=== PATIENT | male | born 1965 ===

== ENCOUNTER → 2018-08-25 21:07 | Outpatient (REF) | payer OTHER, SELFPAY ==
[2018-08-25 21:11] LABS: Bacteria Urine None Seen; WBC Urine None Seen (0-5/HPF)
[2018-08-25 21:53] LABS: Add Manual Diff / Slide Review NO; Basophils Absolute Auto 0 /uL (0-100); Basophils Percent Auto 0.5 % (0-2); Eosinophils Absolute Auto 100 /uL (0-450); Eosinophils Percent Auto 1.7 % (2-4); Hematocrit 44.5 % (41-53); Hemoglobin 15.4 g/dL (13.5-17.5); Lymphocytes Absolute Auto 1600 /uL (1100-4500); Lymphocytes Percent Auto 29.6 % (25-40); Mean Corpuscular HGB Conc 34.6 % (30-36); Mean Corpuscular Hemoglobin 32.3 PG (26-34); Mean Corpuscular Volume 93.4 fL (80-100); Monocytes Absolute Auto 500 /uL (0-900); Monocytes Percent Auto 10.2 % (3-14); Neutrophils Absolute Auto 3000 /uL (1500-7000); Platelet Count 222 X10^3/uL (150-400); Red Blood Cell Count 4.77 X10^6/uL (4.5-5.9); Red Cell Distribution Width 13.3 % (11.6-14.8); White Blood Cell Count 5.2 X10^3/uL (4.5-11.0)
[2018-08-25 21:56] LABS: Alanine Aminotransferase 34 IU/L (21-72); Albumin 4.6 g/dL (3.5-5.0); Albumin Globulin Ratio 1.5 (1.0-2.8); Alkaline Phosphatase 84 U/L (38-126); Aspartate Aminotransferase 34 IU/L (17-59); BUN Creatinine Ratio 14.2 (6-22); Bilirubin Total 0.6 mg/dL (0.2-1.3); Blood Urea Nitrogen 17 mg/dL (9-20); Carbon Dioxide 28 mmol/L (22-32); Chloride 102 mmol/L (98-107); Cholesterol 213 mg/dL (140-199); Estimated Glomerular Filt Rate > 60.0 mL/min (>60); Globulin 3.1 g/dL (1.7-4.1); Glucose 94 mg/dL (70-100); HDL Cholesterol 41 mg/dL (40-60); HEMOLYSIS < 15 (0-50); LDL Cholesterol Calculated 139 mg/dL (<100); Potassium 4.3 mmol/L (3.4-5.1); Sodium 140 mmol/L (137-145); Total Protein 7.7 g/dL (6.3-8.2); Triglycerides 167 mg/dL (35-150)
[2018-08-25 22:13] LABS: Appearance Urine UA CLEAR; Bilirubin Urine UA NEGATIVE (NEGATIVE); Color Urine UA YELLOW; Glucose Urine UA NEGATIVE (Negative); Ketones Urine UA NEGATIVE (NEGATIVE); Leukocyte Esterase Urine UA NEGATIVE (NEGATIVE); Nitrite Urine UA NEGATIVE (Negative); Occult Blood Urine UA 2+ (Negative); Protein Urine UA NEGATIVE (Negative); Specific Gravity Urine UA 1.025 (1.000-1.035); Urobilinogen Urine UA 0.2 E.U./dL (0.2); pH Urine UA 6.5 (4.5-8.0)
[2018-08-25 22:14] LABS: Luteinizing Hormone 2.01 mIU/mL
[2018-08-25 22:22] LABS: Culture Indicated Urine Cult Not Indicated; RBC Urine 1-5/HPF (0-5/HPF)
[2018-08-25 22:33] LABS: Free T4, Direct Thyroxine 1.23 ng/dL (0.78-2.19)
[2018-08-25 22:47] LABS: Thyroid Stimulating Hormone 1.88 uIU/mL (0.47-4.68)
[2018-08-28 20:46] LABS: Estrogen 139.6 pg/mL (60-190)
[2018-08-29 18:37] LABS: PSA Total 2.68 ng/mL (< 4.01)
[2018-08-30 10:37] LABS: Z- Score (Male) -0.6 SD (-2.0 - +2.0)
[2018-09-01 12:04] LABS: Dehydroepiandrosterone (DHEA) 165
[2018-09-01 13:41] LABS: Testosterone, Total 498.6
[2018-09-01 13:42] LABS: Testosterone,Free 9.9
== END ==
LOC: LAB 21:07
PROVIDERS: Visit Provider Family Medicine
DX: Z00.00 Encounter for general adult medical examination without abnormal findings (principal); Z13.89 Encounter for screening for other disorder; E29.1 Testicular hypofunction; F52.21 Male erectile disorder; L73.9 Follicular disorder, unspecified
CPT/HCPCS: 36415; 80053; 80061; 81001; 82627; 82672; 82728; 83002; 84153; 84154; 84305; 84402; 84403; 84439; 84443; 85025